=== PATIENT | female | born 1980 ===

== ENCOUNTER 2017-09-10 21:27 | Emergency (ER) | payer OTHER ==
--- NOTE | 2017-09-10 21:29 | EDPHY ---
H & P Time Seen by Provider: 09/10/17 21:29 HPI/ROS: HPI CHIEF COMPLAINT: Fall on Both knees. HISTORY OF PRESENT ILLNESS: 37-year-old female, presents emergency room after she tripped and fell on both of her knees she sustained abrasions to both anterior knees. She is able to ambulate on them and fully bend them. Declined pain medicine here in emergency room. Came to the ER due to pain and the abrasions. Denies any other area of injury. Past Medical History: MS Past Surgical History: No recent Surgery. Social History: Denies drugs alcohol tobacco. Family History: Noncontributory ROS REVIEW OF SYSTEMS: A comprehensive 10 point review of systems is otherwise negative aside from elements mentioned in the history of present illness. Exam Constitutional triage nursing summary reviewed, vital signs reviewed, awake/ alert. Eyes normal conjunctivae and sclera, EOMI, PERRLA. HENT normal inspection, atraumatic, moist mucus membranes, no epistaxis, neck supple/ no meningismus, no raccoon eyes. Respiratory clear to auscultation bilaterally, normal breath sounds, no respiratory distress, no wheezing. Cardiovascular rate normal, regular rhythm, no murmur, no edema, distal pulses normal. Gastrointestinal soft, non-tender, no rebound, no guarding, normal bowel sounds, no distension, no pulsatile mass. Genitourinary no CVA tenderness. Musculoskeletal bilateral mild soft tissue swelling over anterior both knees. Full range of motion of both knees. Neurovascularly intact. No significant pain with range of motion. No evidence of compartment syndrome. No evidence of open fractures. Negative anterior-posterior drawer sign. no midline vertebral tenderness, full range of motion, no calf swelling, no tenderness of extremities, no meningismus, good pulses, neurovascularly intact. Skin abrasions to both knees. Neurologic awake, alert and oriented x 3, AAOx3, moves all 4 extremities equally, motor intact, sensory intact, CN II-XII intact, normal cerebellar, normal vision, normal speech. Psychiatric normal mood/affect. Heme/Lymph/Immune no lymphadenopathy. Differential Diagnosis: Includes but is not limited to in a particular order soft tissue injury, contusion, abrasions, fractures of the knee Medical Decision Making: Plan for this patient x-ray right knee and x-ray left knee. Clean her abrasions. Antibiotic ointment and dressing. Re-evaluation: X-rays of both knees reviewed. No evidence of acute traumatic injury or fracture. Image interpreted by myself. The patient has bilateral knee abrasions have been cleaned, dressed appropriately antibiotic ointment has been applied. Recommend she ice her knees, anti-inflammatory pain medicine Return emergency room there is worsening pain swelling questions or concerns she understands. Source: Patient Constitutional: Initial Vital Signs Temperature (C) 37.0 C 09/10/17 21:39 Heart Rate 98 09/10/17 21:39 Respiratory Rate 16 09/10/17 21:39 Blood Pressure 167/93 H 09/10/17 21:39 O2 Sat (%) 94 09/10/17 21:39 O2 Delivery Mode Room Air Allergies/Adverse Reactions: amoxicillin Allergy (Intermediate, Verified 09/10/17 21:38) Hives morphine Allergy (Intermediate, Verified 09/10/17 21:37) left arm swelling oxycodone [From Percocet] Allergy (Intermediate, Verified 09/10/17 21:38) Anaphylaxis Home Medications: Medication Instructions Recorded NK [No Known Home Meds] 09/10/17 Medical Decision Making - Data Points Medications Given: Discontinued Medications Ibuprofen (Motrin Oral Solution) 600 mg PO EDNOW ONE Stop: 09/10/17 21:46 Last Admin: 09/10/17 21:50 Dose: 600 mg Tetracaine/Epinephrine/Lidocaine (Let Gel Topical) 1 ea TP EDNOW ONE Stop: 09/10/17 21:48 Last Admin: 09/10/17 21:50 Dose: 1 ea Departure - Departure Disposition: Home, Routine, Self-Care Clinical Impression: Knee contusion Qualifiers: Encounter type: initial encounter Laterality: unspecified laterality Qualified Code(s): S80.00XA - Contusion of unspecified knee, initial encounter Condition: Good Instructions: Contusion in Adults (ED), Abrasion (ED) Additional Instructions: 1. Ice both of her knees over the next 24-48 hours 2. Anti-inflammatory pain medicine like Tylenol Motrin for pain control 3. Return emergency room if you have worsening symptoms questions or concerns. Referrals: Patient,NotPresent [Primary Care Provider] - As per Instructions
[2017-09-10 21:44] VITALS: BP 167/93
[2017-09-10] MEDS ORDERED: IBUPROFEN SUSP 100 MG/5 ML UDCUP PO ONE (21:45)
[2017-09-10] MEDS ORDERED: LET GEL TOPICAL 1 EA SYR TP ONE (21:47)
== END 2017-09-10 22:34 | disposition home or self-care (01) ==
LOC: CED 21:27
DX: S80.01XA Contusion of right knee, initial encounter (principal); S80.02XA Contusion of left knee, initial encounter; W01.0XXA Fall on same level from slipping, tripping and stumbling without subsequent striking against object, initial encounter
CPT/HCPCS: 73562-PO